=== PATIENT | male | born 1955 | race Caucasian/White ===

== ENCOUNTER 2024-04-09 11:00 | Inpatient (IN) ==
[2024-04-09] MEDS: Lactated Ringers 1000 ml BAG 1,000 ML IV ONE ×2 (11:58→12:54)
[2024-04-09] MEDS: Morphine 4 MG/ML VIAL (1 ml) IV ONE (12:08)
[2024-04-09 12:14] LABS: ABS Lymphocytes 1.2 10^3/uL (1.0-4.8); ABS Monocytes 1.1 10^3/uL (0.0-1.1); ABS Neutrophils 9.4 10^3/uL (1.5-7.6); Eosinophil % 0.1 %; Hematocrit 38.7 % (38-53); Hemoglobin 12.8 g/dL (13.2-16.3); Lymphocyte % 10.5 %; Mean Corpuscular Hemoglobin 31.5 pg (27-33); Mean Corpuscular Hgb Conc 33.1 g/dL (31-36); Mean Corpuscular Volume 95.1 fL (80-97); Mean Platelet Volume 8.1 fL (7.5-11.2); Platelet Count 192 10^3/uL (150-450); Red Blood Count 4.06 10^6/uL (4.06-5.63); White Blood Count 11.8 10^3/uL (3.6-10.2)
[2024-04-09 12:37] LABS: INR 2.04 (0.85-1.14)
[2024-04-09 13:06] LABS: Albumin 3.7 g/dL (3.2-5.2); Albumin/Globulin Ratio 1.9 (1-3); Calcium 8.2 mg/dL (8.6-10.3); Creatinine, Serum 0.81 mg/dL (0.67-1.17); Potassium 3.9 mmol/L (3.5-5.0); Total Bilirubin 1.6 mg/dL (0.2-1.0); Total Protein 5.7 g/dL (6.4-8.9)
[2024-04-09 13:50] LABS: Urine Appearance Clear; Urine Bilirubin Negative (Negative); Urine Blood 2+ (Negative); Urine Color Light-Yellow; Urine Glucose 2+ (>=150 mg/dL) (Negative); Urine Ketones 2+ (Negative); Urine Nitrite Negative (Negative); Urine Protein Negative (Negative); Urine Specific Gravity 1.016 (1.002-1.030); Urine Urobilinogen Negative (Negative); Urine pH 6.5 (5.0-8.0)
[2024-04-09 13:52] LABS: Urine Bacteria Absent /HPF (Absent); Urine Red Blood Cell 2+(6-10/hpf) /HPF (0-Trace); Urine Sperm Present /HPF (Absent); Urine White Blood Cell Trace(0-5/hpf) /HPF (0-Trace)
[2024-04-09] MEDS: Iohexol 300 (CONTRAST) 10 ML SDV IV ONE (14:18)
[2024-04-09] MEDS ORDERED: Albuterol HFA INHALER 8 gm MDI INH PRN (17:23)
[2024-04-09] MEDS: Heparin DRIP 25,000 UNITS BAG 25,000 UNITS/250 ML BAG IV SCH (18:40)
[2024-04-09 20:01] LABS: Magnesium 1.9 mg/dL (1.9-2.7)
[2024-04-09 20:14] LABS: PSA Screen Ultra Sensitive 6.574 ng/mL (0-4.000)
[2024-04-09 20:23] LABS: Ferritin 927.7 ng/mL (24-336)
[2024-04-09 20:27] LABS: Folate 15.98 ng/mL (5.90-24.80)
[2024-04-09] MEDS: Potassium Chloride LIQUID 20 MEQ/15 ML LIQUID PO ONE (20:49)
[2024-04-10] MEDS: Erythromycin OPTH OINT APPLIC OINT BOTH EYES SCH (02:55)
[2024-04-10 06:09] LABS: ABS Lymphocytes 1.5 10^3/uL (1.0-4.8); ABS Monocytes 0.9 10^3/uL (0.0-1.1); ABS Neutrophils 6.3 10^3/uL (1.5-7.6); Eosinophil % 0.4 %; Hematocrit 36.2 % (38-53); Hemoglobin 12.3 g/dL (13.2-16.3); Lymphocyte % 17.5 %; Mean Corpuscular Hemoglobin 32.2 pg (27-33); Mean Corpuscular Hgb Conc 33.9 g/dL (31-36); Mean Platelet Volume 8.3 fL (7.5-11.2); Platelet Count 181 10^3/uL (150-450); Red Blood Count 3.81 10^6/uL (4.06-5.63); Red Cell Distribution Width 14.1 % (12-17); White Blood Count 8.8 10^3/uL (3.6-10.2)
[2024-04-10 06:21] LABS: Calcium 7.7 mg/dL (8.6-10.3); Creatinine, Serum 0.7 mg/dL (0.67-1.17); Magnesium 1.9 mg/dL (1.9-2.7); Potassium 4.2 mmol/L (3.5-5.0); eGFR CKD-EPI 100.4 (>60)
[2024-04-10] MEDS: Polyethylene Glycol 3350 17 GM PACKET PO SCH (08:54)
[2024-04-10] MEDS ORDERED: Warfarin per PHARMACY **NOTE FOLLOW UP SCH (20:00)
[2024-04-10] MEDS: Senna TAB 8.6 mg TAB PO PRN (21:41)
[2024-04-10] MEDS: Magnesium Hydroxide LIQ 30 ML UDC PO PRN (21:45)
[2024-04-11 06:55] LABS: Hemoglobin 12.3 g/dL (13.2-16.3); Mean Corpuscular Hemoglobin 32.1 pg (27-33); Mean Corpuscular Hgb Conc 34.1 g/dL (31-36); Mean Platelet Volume 7.5 fL (7.5-11.2); Platelet Count 204 10^3/uL (150-450); Red Blood Count 3.83 10^6/uL (4.06-5.63); White Blood Count 8.1 10^3/uL (3.6-10.2)
[2024-04-11 07:02] LABS: Activated Partial Thrombo Time 76.2 seconds (26.0-38.0); INR 1.5 (0.85-1.14)
[2024-04-11] MEDS: Warfarin DAILY REMINDER **NOTE FOLLOW UP SCH (17:29)
[2024-04-12 07:49] LABS: Hematocrit 37.6 % (38-53); Hemoglobin 12.6 g/dL (13.2-16.3); Mean Corpuscular Hgb Conc 33.7 g/dL (31-36); Mean Corpuscular Volume 94.9 fL (80-97); Mean Platelet Volume 7.9 fL (7.5-11.2); Platelet Count 248 10^3/uL (150-450); Red Blood Count 3.96 10^6/uL (4.06-5.63); Red Cell Distribution Width 13.8 % (12-17); White Blood Count 7.8 10^3/uL (3.6-10.2)
[2024-04-12 08:31] LABS: INR 1.9 (0.85-1.14)
[2024-04-12 08:32] LABS: Activated Partial Thrombo Time 122.6 seconds (26.0-38.0)
[2024-04-12] MEDS: Glycerin ADULT 2.4 gm SUPP PR ONE (18:24)
[2024-04-13 06:06] LABS: Hematocrit 37.4 % (38-53); Hemoglobin 12.9 g/dL (13.2-16.3); Mean Corpuscular Hemoglobin 32.5 pg (27-33); Mean Corpuscular Hgb Conc 34.5 g/dL (31-36); Mean Corpuscular Volume 94.1 fL (80-97); Mean Platelet Volume 7.2 fL (7.5-11.2); Platelet Count 248 10^3/uL (150-450); Red Blood Count 3.98 10^6/uL (4.06-5.63); Red Cell Distribution Width 13.6 % (12-17); White Blood Count 6.9 10^3/uL (3.6-10.2)
[2024-04-13 06:23] LABS: Activated Partial Thrombo Time 78.7 seconds (26.0-38.0); INR 2.21 (0.85-1.14)
[2024-04-13] MEDS: Magnesium CITRATE LIQ 300 ML BTL PO ONE (14:32)
[2024-04-14 06:24] LABS: Activated Partial Thrombo Time 34.8 seconds (26.0-38.0)
[2024-04-14 07:49] LABS: INR 2.12 (0.85-1.14)
[2024-04-15 09:04] LABS: INR 2.32 (0.85-1.14)
[2024-04-16 08:26] LABS: INR 2.82 (0.85-1.14)
[2024-04-17 06:33] LABS: INR 2.8 (0.85-1.14)
[2024-04-17] MEDS: Magnesium CITRATE LIQ 300 ML BTL PO PRN (10:44)
[2024-04-18 06:44] LABS: INR 3.02 (0.85-1.14)
[2024-04-20 06:23] VITALS: BP 129/90
[2024-04-20 06:52] LABS: INR 3.13 (0.85-1.14)
== END 2024-04-20 09:15 | DRG 563 ==
LOC: EDHOLD 11:00 → ED 11:00 → SSU 04-10 → SUATTDRO 04-11 11:53
PROVIDERS: ADMIT Internal Medicine; ATTEND Student in an Organized Health Care Education/Training Program

== ENCOUNTER 2024-04-16 07:23 | Inpatient (IN) ==
[2024-04-20] MEDS ORDERED: Senna TAB 8.6 mg TAB PO PRN (11:49)
[2024-04-21] MEDS: Polyethylene Glycol 3350 17 GM PACKET PO SCH (10:09)
[2024-04-22 07:06] LABS: ABS Eosinophils 0.1 10^3/uL (0.0-0.5); ABS Lymphocytes 1.8 10^3/uL (1.0-4.8); ABS Monocytes 0.5 10^3/uL (0.0-1.1); ABS Neutrophils 4.2 10^3/uL (1.5-7.6); Eosinophil % 1.1 %; Hematocrit 37.9 % (38-53); Hemoglobin 12.7 g/dL (13.2-16.3); Lymphocyte % 27.1 %; Mean Corpuscular Hemoglobin 31.7 pg (27-33); Mean Corpuscular Hgb Conc 33.5 g/dL (31-36); Mean Corpuscular Volume 94.5 fL (80-97); Mean Platelet Volume 6.9 fL (7.5-11.2); Platelet Count 372 10^3/uL (150-450); Red Blood Count 4.01 10^6/uL (4.06-5.63); Red Cell Distribution Width 13.7 % (12-17); White Blood Count 6.6 10^3/uL (3.6-10.2)
[2024-04-22 07:18] LABS: INR 3.55 (0.85-1.14)
[2024-04-22 07:33] LABS: Albumin 3.4 g/dL (3.2-5.2); Albumin/Globulin Ratio 1.6 (1-3); Calcium 8.3 mg/dL (8.6-10.3); Creatinine, Serum 0.75 mg/dL (0.67-1.17); Globulin 2.1 g/dL (2-4); Potassium 4.2 mmol/L (3.5-5.0); Total Bilirubin 0.7 mg/dL (0.2-1.0); Total Protein 5.5 g/dL (6.4-8.9); eGFR CKD-EPI 98.3 (>60)
[2024-04-23 07:31] LABS: INR 3.15 (0.85-1.14)
[2024-04-23] MEDS: Warfarin DAILY REMINDER **NOTE FOLLOW UP SCH (20:03)
[2024-04-24 07:06] LABS: INR 2.42 (0.85-1.14)
[2024-04-26] MEDS: Magnesium Hydroxide LIQ 30 ML UDC PO PRN (07:58)
[2024-04-27 05:43] LABS: INR 2.88 (0.85-1.14)
[2024-04-29 06:54] LABS: ABS Lymphocytes 1.6 10^3/uL (1.0-4.8); ABS Monocytes 0.5 10^3/uL (0.0-1.1); ABS Neutrophils 4.9 10^3/uL (1.5-7.6); Eosinophil % 0.4 %; Hematocrit 39.3 % (38-53); Hemoglobin 13.5 g/dL (13.2-16.3); Mean Corpuscular Hgb Conc 34.2 g/dL (31-36); Mean Corpuscular Volume 93.6 fL (80-97); Mean Platelet Volume 7.2 fL (7.5-11.2); Platelet Count 308 10^3/uL (150-450); Red Blood Count 4.21 10^6/uL (4.06-5.63); Red Cell Distribution Width 13.8 % (12-17); White Blood Count 7.1 10^3/uL (3.6-10.2)
[2024-04-29 06:59] LABS: INR 3.15 (0.85-1.14)
[2024-04-29 07:15] LABS: Albumin 3.7 g/dL (3.2-5.2); Albumin/Globulin Ratio 1.5 (1-3); Calcium 8.4 mg/dL (8.6-10.3); Creatinine, Serum 0.77 mg/dL (0.67-1.17); Globulin 2.5 g/dL (2-4); Potassium 4.2 mmol/L (3.5-5.0); Total Bilirubin 0.7 mg/dL (0.2-1.0); Total Protein 6.2 g/dL (6.4-8.9); eGFR CKD-EPI 97.5 (>60)
[2024-05-04 05:26] VITALS: BP 118/80
== END 2024-05-04 08:04 | disposition home or self-care (01) | DRG 561 ==
LOC: PMRU 04-20 10:36
PROVIDERS: ADMIT Physical Medicine & Rehabilitation; ATTEND Physical Medicine & Rehabilitation